=== PATIENT | female | born 1940 | race Asian ===

== ENCOUNTER 2022-01-27 18:01 | Emergency (ER) | payer OTHER ==
[~2022-01-27] VITALS: Ht 157.5 cm; Wt 68.0 kg
[2022-01-27 18:01] VITALS: TEMP 98
[~2022-01-27 18:01] MED LIST: ACID CONTROL MA20 MG OR; ALLO300T23 PO; AMBIEN5 MG PO; BENA20TA2 PO; BENZTROPINE2 MG PO; CARBIDOPA/LEVOD1 TA1 PO; DICL75TA4 PO; DIGOX250 MCG PO; DIOVAN HCT PO; SERT100T PO; SIMV20TA2 PO
[2022-01-27 18:19] VITALS: BP 140/65
[2022-01-27 18:35] LABS: PLATELET COUNT 131 K/uL (152-353)
[2022-01-27 18:42] LABS: POTASSIUM 3.7 mmol/L (3.6-5.2)
[2022-01-27] MEDS ORDERED: ALLO300T23 PO (21:37)
[2022-01-27] MEDS ORDERED: AMLODIPINE BESYLATE PO (21:37)
[2022-01-27] MEDS ORDERED: BENZ1TAB43 PO (21:38)
[2022-01-27] MEDS ORDERED: DIVALPROEX500 M1 PO (21:40)
[2022-01-27] MEDS ORDERED: SINEMET1 TA3 PO (21:40)
[2022-01-27] MEDS ORDERED: ZIPRASIDONE HYD PO (21:41)
[2022-01-27] MEDS ORDERED: APIX1TAB PO (21:41)
[2022-01-27] MEDS ORDERED: EUTHYROX112 MCG PO (21:42)
[2022-01-27] MEDS ORDERED: LISI5TAB10 PO (21:43)
[2022-01-27] MEDS ORDERED: LORA1TAB17 PO (21:44)
[2022-01-27] MEDS ORDERED: OMEP20CA PO (21:44)
[2022-01-27] MEDS ORDERED: PRAVASTATIN10 MG PO (21:45)
[2022-01-27] MEDS ORDERED: THERA-M PO (21:45)
[2022-01-27] MEDS ORDERED: TRAZ100T PO (21:46)
[2022-01-27] MEDS ORDERED: VITAMIN B1100 M1 PO (21:47)
[2022-01-27] MEDS ORDERED: ZIPRASIDONE HYD40 MG PO (21:50)
== END 2022-01-27 20:18 | disposition still patient (30) ==
LOC: ED 18:01
PROVIDERS: Emergency Medicine
DX: F03.91 Unspecified dementia, unspecified severity, with behavioral disturbance (principal); R45.1 Restlessness and agitation; I48.91 Unspecified atrial fibrillation; Z11.52 Encounter for screening for COVID-19; Z04.6 Encounter for general psychiatric examination, requested by authority
CPT/HCPCS: 36415; 80053; 85027; 87635; 93005; 99283; U0003

== ENCOUNTER 2022-02-24 13:38 | Emergency (ER) | payer OTHER ==
[~2022-02-24] VITALS: Ht 157.5 cm; Wt 68.9 kg
[~2022-02-24 13:38] MED LIST changes: +ACET-206 PO; +ALLO100T22 PO; +AMLODIPINE 10 MG PO; +APIX1TAB PO; +ATOR20TA2 PO; +BENZ1TAB43 PO; +CARB25TA29 PO; +DIVALPROEX500 M1 PO; +DIVALPROEX500 MG PO; +EUTHYROX112 MCG PO; +LEVO0.117 PO; +LISI5TAB10 PO; +LORA0.5T17 PO; +LORA1TAB17 PO; +NORVASC 5MG TAB PO; +OLANZAPINE5 MG PO; +OMEPRAZOLE40 MG PO; +PANTOPRAZOLE 40MG TA PO; +PRAVASTATIN10 MG PO; +THERA-M PO; +TRAZ100T PO; +TRAZ50TA36 PO; +VITAMIN B1100 M1 PO; +ZIPRASIDONE HYD PO; +ZIPRASIDONE HYD40 MG PO
[2022-02-24 13:45] VITALS: BP 145/66; TEMP 97.4
[2022-02-24 14:17] LABS: PLATELET COUNT 152 K/uL (152-353)
[2022-02-24] MEDS ORDERED: TYLENOL325 MG PO (16:50)
[2022-02-24] MEDS ORDERED: LIPITOR40 MG PO (16:52)
[2022-02-24] MEDS ORDERED: LORA0.5T17 PO (16:55)
[2022-02-24] MEDS ORDERED: ZYPREXA ZYDI5 MG PO (16:56)
== END 2022-02-24 15:03 | disposition still patient (30) ==
LOC: ED 13:38
PROVIDERS: Emergency Medicine
DX: F20.0 Paranoid schizophrenia (principal); R45.1 Restlessness and agitation; Z11.52 Encounter for screening for COVID-19; Z04.6 Encounter for general psychiatric examination, requested by authority
CPT/HCPCS: 80053; 85027; 87635; 93005; 99283; U0003

== ENCOUNTER 2022-06-30 19:28 | Emergency (ER) | payer OTHER ==
[~2022-06-30] VITALS: Ht 157.5 cm; Wt 61.2 kg
[2022-06-30 19:28] VITALS: TEMP 98.2
[~2022-06-30 19:28] MED LIST changes: +LIPITOR40 MG PO; +OLANZAPINE20 MG PO; +TYLENOL325 MG PO
[2022-06-30 20:26] LABS: PLATELET COUNT 104 K/uL (152-353)
[2022-06-30 20:52] LABS: POTASSIUM 3.8 mmol/L (3.6-5.2); SODIUM 140 mmol/L (136-145)
[2022-06-30 21:30] VITALS: BP 127/62
== END 2022-06-30 21:30 | disposition still patient (30) ==
LOC: ED 19:28
PROVIDERS: Emergency Medicine
DX: F20.0 Paranoid schizophrenia (principal); F03.911 Unspecified dementia, unspecified severity, with agitation; D64.89 Other specified anemias; Z11.52 Encounter for screening for COVID-19; Z04.6 Encounter for general psychiatric examination, requested by authority
CPT/HCPCS: 36415; 80053; 85027; 87635; 93005; 99283; U0003

== ENCOUNTER 2022-08-26 22:25 | Emergency (ER) | payer OTHER ==
[~2022-08-26] VITALS: Ht 157.5 cm; Wt 61.7 kg
[2022-08-26 22:25] VITALS: BP 167/64; TEMP 98.2
[~2022-08-26 22:25] MED LIST changes: +MAGNSUS68 PO; +OLANZAPINE10 MG PO
[2022-08-26 23:19] LABS: PLATELET COUNT 116 K/uL (152-353)
[2022-08-26 23:25] LABS: POTASSIUM 3.6 mmol/L (3.6-5.2)
[2022-08-27] MEDS ORDERED: MILK OF MA400 MG/5 M PO (07:30)
== END 2022-08-27 00:30 | disposition still patient (30) ==
LOC: ED 22:25
PROVIDERS: Internal Medicine
DX: F03.911 Unspecified dementia, unspecified severity, with agitation (principal); Z11.52 Encounter for screening for COVID-19; Z04.6 Encounter for general psychiatric examination, requested by authority
CPT/HCPCS: 36415; 80053; 85027; 87635; 93005; 99283; J2060; U0003